=== PATIENT | male | born 1950 | race African-American/Black ===

== ENCOUNTER 2018-09-28 05:25 | Day surgery (SDC) | payer MEDICARE, OTHER ==
[~2018-09-28] VITALS: Ht 172.7 cm; Wt 78.2 kg
[2018-09-28] MEDS ORDERED: RINGERS SOLUTION,LACTATED 1,000 ML IV ONE ×2 (05:42→06:00)
[2018-09-28 06:42] LABS: BASOPHILS % (AUTO) 0.6 % (0.0-2.0); HEMATOCRIT 44.1 % (41-53); HEMOGLOBIN 15.5 g/dL (13.5-17.5); LYMPHOCYTES % (AUTO) 37.7 % (22.0-44.0); MEAN CORPUSCULAR HGB CONC 35.1 G/dL (31.0-37.0); MEAN CORPUSCULAR VOLUME 94 fL (80-100); MONOCYTES # (AUTO) 0.3 K/uL (0.1-1.0); MONOCYTES % (AUTO) 5.3 % (2.0-9.0); NEUTROPHILS % (AUTO) 55.4 % (40.0-70.0); PLATELET COUNT (AUTO) 179 K/uL (150-450); RED BLOOD CELL COUNT(AUTO) 4.69 MIL/uL (4.50-5.90); RED CELL DISTRIBUTION WIDTH 12.9 % (11.5-14.5)
[2018-09-28] MEDS ORDERED: BUPIVACAINE 0.25%/EPI 1:200,000/PF 10 ML VIAL ONE (06:49)
[2018-09-28] MEDS ORDERED: BUPIVACAINE HCL/PF 0.5% 30 ML VIAL ONE (06:49)
[2018-09-28] MEDS ORDERED: BUPIVACAINE HCL/PF 0.25% 30 ML VIAL ONE (06:49)
[2018-09-28] MEDS ORDERED: LIDOCAINE/PF 1% 30 ML VIAL ONE (06:52)
[2018-09-28] MEDS ORDERED: BACITRACIN 50,000 UNITS/VIAL ONE (06:52)
[2018-09-28] MEDS ORDERED: SODIUM CHLORIDE 0.9% 0 ML ONE (06:53)
[2018-09-28] MEDS ORDERED: CALC-1038 PO (06:53)
[2018-09-28] MEDS ORDERED: ACETAMINOPHEN 1000 MG/ISO-OSM 100 ML IV ONE (06:55)
[2018-09-28 08:18] LABS: ANION GAP 2 mmol/L (8-16); CALCIUM, TOTAL 8.9 mg/dL (8.8-10.5); CARBON DIOXIDE 31 mmol/L (22-29); CHLORIDE 104 mmol/L (98-107); CREATININE 1.08 mg/dL (0.60-1.30); GLOMERULAR FILTR. RATE CALC > 60 mL/min (>60); GLUCOSE,RANDOM 109 mg/dL (70-110); POTASSIUM 4.1 mmol/L (3.5-5.1); SODIUM SERUM 137 mmol/L (136-145); UREA NITROGEN, BLOOD 12 mg/dL (7-18)
[2018-09-28] MEDS ORDERED: LIDOCAINE/PF 2% 5 ML VIAL INJ ONE (12:00)
[2018-09-28] MEDS ORDERED: PROPOFOL 1% 20 ML VIAL IVP ONE (12:00)
[2018-09-28] MEDS ORDERED: MIDAZOLAM HCL 2 MG/2 ML VIAL IVP ONE (12:00)
== END 2018-09-28 09:05 | disposition home or self-care (01) ==
LOC: SURGERY 05:25
PROVIDERS: ATTEND Podiatrist Foot & Ankle Surgery
DX: M67.471 Ganglion, right ankle and foot (principal); M25.871 Other specified joint disorders, right ankle and foot; J31.0 Chronic rhinitis; G47.33 Obstructive sleep apnea (adult) (pediatric); M19.90 Unspecified osteoarthritis, unspecified site; F12.90 Cannabis use, unspecified, uncomplicated; Z79.891 Long term (current) use of opiate analgesic; Z79.899 Other long term (current) drug therapy; Z98.890 Other specified postprocedural states
CPT/HCPCS: 28090; 36415; 80048; 85025; 88304; 93005; J0131; J0690; J2250; J2704; J3490 ×4; J7120